=== PATIENT | female | born 1995 | race Caucasian/White ===

== ENCOUNTER 2024-10-18 08:03 | Emergency (ER) | payer OTHER, SELFPAY ==
--- NOTE | 2024-10-18 08:10 | ED_ITS ---
HPI - URI/Sore Throat General Chief Complaint: Upper Respiratory Infection Stated Complaint: Flu Symptoms Time Seen by Provider: 10/18/24 08:26 Source: patient, RN notes reviewed and old records reviewed Mode of arrival: ambulatory Limitations: no limitations History of Present Illness HPI Narrative: 29 year old female who presents to [facility] with complaints of history of sore throat, headache, chills, body aches, slight cough, runny nose, and fevers up to 102.5F. Patient reports that she has been taking Tylenol for her symptoms with last dose at 6:30 a.m. this morning. Patient reports no known exposures to ill contacts. Patient reports that she has some nausea but has not had any vomiting, has had some diarrhea. MD elicited complaint: fever, cough, sore throat, rhinorrhea, nasal congestion and other ( bodyaches and headache) Onset (ago): day(s) ( day 3) Severity: moderate Description of mucous: clear Able to tolerate fluids by mouth: Yes Treatments prior to arrival: acetaminophen Related Data Allergies Allergy/AdvReac Type Severity Reaction Status Date / Time No Known Allergies Allergy Verified 10/18/24 08:28 Review of Systems Review of Systems: CONSTITUTIONAL: reports malaise, chills, sweats, or fever. EYES: Denies visual changes, redness, or discharge. ENT: Reports rhinorrhea, congestion, no sinus pain, no otalgia and positive sore throat. CARDIOVASCULAR: Denies chest pain, palpitations, or edema. RESPIRATORY: Reports slight cough.? Denies dyspnea. GASTROINTESTINAL: Denies abdominal pain, positive for some nausea,no vomiting, positive for some diarrhea SKIN: Denies rash or itching. MUSCULOSKELETAL: reports myalgia. NEUROLOGIC: report headache. All systems reviewed & are unremarkable except as noted in HPI and below PMFSH Past Medical History Medical History (Updated 10/18/24 @ 08:59 by Leigha Easley NP) Anxiety Social History Social History (Updated 10/18/24 @ 08:37 by Leigha Easley NP) Smoking status: Never smoker Alcohol intake: current Alcohol use details: social Substance use type: does not use Living arrangements: alone Gender identity (if verbalized by the patient): Female Comments At time of signature, agree with nursing past medical, surgical, social and family history. There is no relevant family history pertinent to the presenting complaint Exam Narrative: GENERAL: Well-appearing, well-nourished, and in no acute distress. HEAD: Normocephalic EYES: PERRLA, conjunctivae clear ENT: Nares clear, turbinates edematous and erythematous, clear discharge. Mucous membranes moist. TM pearly estrada with dull light reflex bilaterally; no tragal tenderness. Oropharynx erythematous without lesions. Tonsils not enlarged and without exudate, no drooling, no hoarseness, no trismus, uvula midline. NECK: Supple. No lymphadenopathy CHEST: Clear to auscultation, breath sounds equal. No wheezing, rhonchi, rales, or stridor. No respiratory distress, speaks in full sentences.occasional dry cough SAO2 100% on room air HEART: Regular rate and rhythm. No murmur heard. SKIN: Warm, dry, no rash. NEURO: Alert and oriented x3. PSYCH: Normal mood and affect Course Course Emergency Course: Patient is aware of diagnosis, understands and agrees to treatment plan.? Anticipatory guidance given.? Patient agrees to follow-up as directed and is aware of reasons to seek care at the emergency department. Portions of this record may have been created with voice recognition software Level of Care: Express Care Visit Vital Signs Vital signs: Vital Signs Temperature 38.7 C H 10/18/24 08:19 Pulse Rate 111 H 10/18/24 08:19 Respiratory Rate 19 10/18/24 08:19 Blood Pressure 115/69 10/18/24 08:19 Pulse Oximetry 100 10/18/24 08:19 Oxygen Delivery Room Air 10/18/24 08:19 Temperature 38.7 C H 10/18/24 08:26 Pulse Rate 111 H 10/18/24 08:26 Respiratory Rate 18 10/18/24 08:26 Blood Pressure 115/69 10/18/24 08:26 Pulse Oximetry 100 10/18/24 08:26 Oxygen Delivery Room Air 10/18/24 08:19 Reviewed MDM - URI/Sore Throat MDM Narrative Medical decision making narrative: Differential diagnosis considered: [place] virus, strep pharyngitis, allergic rhinitis, upper respiratory tract infection, sinusitis, rhinosinusitis, nasopharyngitis. viral pharyngitis, otitis media, otitis externa, pneumonia, bronchitis, viral cough syndrome, viral syndrome, and influenza.? Exam findings show no acute concerns or changes; patient is non-toxic appearing and is in no distress.? Patient is appropriate for outpatient treatment and follow-up. Differential Diagnosis Differential diagnosis: Likely upper respiratory infection, viral infection, influenza, pharyngitis and other (strep pharyngitis, COVI) Medical Records Attestation: I reviewed the patient's medical records. Lab Data Attestation: I reviewed the patient's lab results. Lab results narrative: strep screen negative, culture sent,COVID antigen negative, Influenza A negative, Influenza B negative Labs: Lab Results 10/18/24 10/18/24 Range/Units 08:36 08:40 POC Influenza A Ag Negative (Negative) POC Influenza B Ag Negative (Negative) POC SARS CoV-2 Ag Negative (Negative) POC Grp A Strep Screen Negative (Negative) Critical Care Time Critical Care Time Critical Care Time: No Discharge Plan Discharge Clinical Impression: Viral infection Patient Disposition: Home Condition: Stable Instructions: Viral Syndrome (ED) Additional Instructions: Increase fluids especially juices and water [id number] cough and cold medicine of your choice for your symptoms Zyrtec Claritin or Keri daily heat to the face 20-30 minutes 4-6 times a day for pain Salt water gargles, throat lozenges or throat sprays as desired Your strep test today was negative. A throat culture will be sent to the laboratory for further testing. IF the test is positive, you will receive a phone call within 48 hours and an appropriate antibiotic will be initiated at that time. Zofran for any nausea or vomiting If your symptoms persist, change or worsen significantly before you can contact your personal physician then please, without delay, go to the emergency department for further evaluation. Follow-up with PCP in 7-10 days or sooner if needed Tylenol or ibuprofen for any fever pain Patient Language: Filipino Prescriptions: New ondansetron 4 mg tablet,disintegrating 4 mg PO Q6H PRN (Reason: nausea and vomiting) Qty: 20 0RF Follow-up/Referrals: PHYSICIAN,ENRICHMENT TEACHER [Primary Care Provider] - Stand Alone Forms: Work/School Release IP Time of Disposition: 08:59 Quality [place] Coma Scale Eyes: Open Verbal: Oriented and Alert Motor: Follows Commands [place] Coma Total Score: 15
[2024-10-18 08:19] VITALS: BP 115/69; PULSE 111; RESP 19; TEMP 38.7; O2SAT 100
[2024-10-18 08:26] VITALS: BP 115/69; PULSE 111; RESP 18; TEMP 38.7; O2SAT 100
[2024-10-18 08:38] LABS: EDSTREPNEGPOS1 Negative (Negative)
[2024-10-18 08:44] LABS: EDCOVIDSCREEN Negative (Negative)
[2024-10-18 08:45] LABS: EDINFLUASCREEN Negative (Negative); EDINFLUBSCREEN Negative (Negative)
== END 2024-10-18 09:02 | disposition home or self-care (01) ==
PROVIDERS: Emergency Provider Registered Nurse
DX: B34.9 Viral infection, unspecified (principal); Z20.822 Contact with and (suspected) exposure to COVID-19
CPT/HCPCS: 87081; 87426; 87804; 87880; 99203; G0463